=== PATIENT | female | born 1980 | race Caucasian/White ===

== ENCOUNTER 2016-05-13 13:15 | Emergency (ER) | payer OTHER | END 2016-05-13 14:01 | disposition left against medical advice (07) | LOC: ER 13:26 | DX: R05 Cough (principal); Z53.21 Procedure and treatment not carried out due to patient leaving prior to being seen by health care provider ==

== ENCOUNTER 2017-03-18 19:29 | Emergency (ER) | payer SELFPAY ==
[~2017-03-18] VITALS: Ht 172.7 cm; Wt 104.3 kg
[2017-03-18] MEDS ORDERED: SODIUM CHLORIDE 0.9% 1,000 ML IVB ONE (21:09)
[2017-03-18] MEDS ORDERED: IPRATROPIUM BROM 0.5 MG/2.5ML INH SOL NEB ONE (21:15)
[2017-03-18] MEDS ORDERED: ONDANSETRON HCL 4 MG/2 ML VIAL IV ONE (21:15)
[2017-03-18] MEDS ORDERED: HYDROmorphone HCL 2 MG/ML VL IV ONE (21:15)
[2017-03-18] MEDS ORDERED: KETOROLAC TROMETH 30 MG/ML 1ML VIAL IV ONE (21:15)
[2017-03-18] MEDS ORDERED: methylPREDNISolone SOD SUCC 125 MG/2 ML VL IV ONE (21:15)
[2017-03-18] MEDS ORDERED: ALBUTEROL SULF 2.5 MG/0.5ML(0.5%) NEB SOLN NEB ONE (21:15)
[2017-03-18 21:46] LABS: Albumin 4.2 g/dL (3.4-5.0); BUN/Creatinine Ratio 11.2; Calcium 9.4 mg/dL (8.5-10.1); Potassium 3.7 mmol/L (3.5-5.1)
[2017-03-18 21:48] LABS: Bilirubin, Total 0.4 mg/dL (0.2-1.0); Total Protein 8.3 g/dL (6.4-8.2)
[2017-03-19 01:28] LABS: Basophils # (auto) 0 uL; Basophils % (auto) 0.4 % (0.0-2.0); Eosinophils # (auto) 0 uL; Eosinophils % (auto) 0.5 % (0.0-7.0); Hematocrit 39.5 % (36.0-46.0); Lymphocytes # (auto) 2.2 uL; Lymphocytes % (auto) 39.1 % (10.0-50.0); Mean Corpuscular Hemoglobin 27.5 pg (28.0-32.0); Mean Corpuscular Hgb Conc. 32.8 g/dL (32.0-36.0); Mean Corpuscular Volume 83.8 fL (80.0-100.0); Mean Platelet Volume 8.8 fL (6.9-10.8); Monocytes # (auto) 0.7 uL; Monocytes % (auto) 11.7 % (0.0-12.0); Neutrophils # (auto) 2.7 uL; Neutrophils % (auto) 48.3 % (37.0-80.0); Nucleated Red Blood Cells % 0.3 %; Platelet Count (auto) 181 10^3/uL (140-450); Red Cell Distribution Width 14.2 % (11.8-14.3); White Blood Cell 5.6 10^3/uL (4.4-10.8)
[2017-03-19 02:20] LABS: Urine Bilirubin Negative (Negative); Urine Blood 2+ /uL (Negative); Urine Color Yellow (Yellow); Urine Glucose Normal (Normal); Urine Granular Cast FEW /lpf (0); Urine Hyaline Cast MOD /lpf (0 - 2); Urine Ketone 3+ (Negative); Urine Mucus FEW (None Seen); Urine Nitrite Negative (Negative); Urine RBC 20 /hpf (0 - 4); Urine Squamous Epithelial Cell FEW /hpf (<5); Urine Urobilinogen Normal (Negative); Urine pH 5.5 (5.0-8.0)
[2017-03-19] MEDS ORDERED: ALBUTEROL SULF 2.5 MG/0.5ML(0.5%) NEB SOLN NEB ONE (02:30)
[2017-03-19] MEDS ORDERED: NIFEdipine 10 MG CAP PO ONE (03:30)
[2017-03-19 04:04] VITALS: BP 118/69
== END 2017-03-19 04:12 | disposition home or self-care (01) ==
LOC: ER 19:29
DX: J45.901 Unspecified asthma with (acute) exacerbation (principal); J11.1 Influenza due to unidentified influenza virus with other respiratory manifestations; I10 Essential (primary) hypertension
CPT/HCPCS: 36415; 71010; 74176; 80053; 81001; 82150; 83690; 84702; 85025; 93005; 94640; 94761; 96361; 96374; 96375; 99285; J1170; J1885; J2405; J2930

== ENCOUNTER 2017-05-31 20:45 | Emergency (ER) | payer OTHER ==
[~2017-05-31] VITALS: Ht 172.7 cm; Wt 122.5 kg
[2017-05-31 22:21] LABS: Basophils # (auto) 0.1 uL; Basophils % (auto) 0.8 % (0.0-2.0); Eosinophils # (auto) 0.3 uL; Eosinophils % (auto) 2.6 % (0.0-7.0); Hematocrit 37.6 % (36.0-46.0); Hemoglobin 12.4 g/dL (12.2-16.2); Lymphocytes # (auto) 2.7 uL; Lymphocytes % (auto) 25.7 % (10.0-50.0); Mean Corpuscular Hemoglobin 27.4 pg (28.0-32.0); Mean Corpuscular Hgb Conc. 32.9 g/dL (32.0-36.0); Mean Corpuscular Volume 83.4 fL (80.0-100.0); Monocytes # (auto) 0.9 uL; Monocytes % (auto) 8.5 % (0.0-12.0); Neutrophils # (auto) 6.6 uL; Neutrophils % (auto) 62.4 % (37.0-80.0); Platelet Count (auto) 301 10^3/uL (140-450); Red Blood Cells 4.51 10^6/uL (4.0-5.20); Red Cell Distribution Width 13.8 % (11.8-14.3); White Blood Cell 10.6 10^3/uL (4.4-10.8)
[2017-05-31 22:35] LABS: BUN/Creatinine Ratio 16.3; Bilirubin, Total 0.2 mg/dL (0.2-1.0); Magnesium 2.3 mg/dL (1.6-2.6); Potassium 4.1 mmol/L (3.5-5.1); Total Protein 7.4 g/dL (6.4-8.2)
[2017-05-31 22:37] LABS: INR 0.92 (0.9-1.15); Partial Thromboplastin Time 24.8 sec (22.64-33.71)
[2017-06-01 00:06] LABS: Urine Pregnacy Test Negative (Negative)
[2017-06-01 00:19] LABS: Urine Bacteria FEW /hpf (None Seen); Urine Blood Negative /uL (Negative); Urine Mucus FEW (None Seen); Urine Specific Gravity 1.034 (1.001-1.035); Urine WBC 2 /hpf (0 - 5)
[2017-06-01 00:21] LABS: Alcohol, Urine < 3.0 mg/dL (0-5); Amphetamine Screen, Urine NEGATIVE (NEGATIVE); Barbiturate Scree,Urine NEGATIVE (NEGATIVE); Benzodiazephine Screen, Urine NEGATIVE (NEGATIVE); Cannabinoid Screen, Urine POSITIVE (NEGATIVE); Cocaine Screen, Urine NEGATIVE (NEGATIVE); Opiate Scree,Urine NEGATIVE (NEGATIVE); Phencyclidine Screen, Urine NEGATIVE (NEGATIVE)
[2017-06-01 02:39] VITALS: BP 160/98
== END 2017-06-01 02:45 | disposition home or self-care (01) ==
LOC: ER 20:45
DX: R07.89 Other chest pain (principal); K29.00 Acute gastritis without bleeding; J45.909 Unspecified asthma, uncomplicated; I10 Essential (primary) hypertension; R06.02 Shortness of breath; F19.10 Other psychoactive substance abuse, uncomplicated
CPT/HCPCS: 36415; 71045; 80053; 80307; 81001; 81025; 83735; 83880; 84443; 84484; 85025; 85379; 85610; 85730; 93005

== ENCOUNTER 2019-05-16 21:22 | Emergency (ER) | payer MEDICAID, OTHER ==
[~2019-05-16] VITALS: Ht 172.7 cm; Wt 108.9 kg
[2019-05-16 23:04] LABS: Basophils # (auto) 0 uL; Basophils % (auto) 0.6 % (0.0-2.0); Eosinophils # (auto) 0.2 uL; Eosinophils % (auto) 2.3 % (0.0-7.0); Hematocrit 34.3 % (36.0-46.0); Hemoglobin 11.5 g/dL (12.2-16.2); Lymphocytes % (auto) 24.2 % (10.0-50.0); Mean Corpuscular Hemoglobin 27.1 pg (28.0-32.0); Mean Corpuscular Hgb Conc. 33.6 g/dL (32.0-36.0); Mean Corpuscular Volume 80.6 fL (80.0-100.0); Monocytes # (auto) 0.6 uL; Monocytes % (auto) 7.6 % (0.0-12.0); Neutrophils # (auto) 5.3 uL; Neutrophils % (auto) 65.3 % (37.0-80.0); Platelet Count (auto) 260 10^3/uL (140-450); Red Blood Cells 4.26 10^6/uL (4.0-5.20); Red Cell Distribution Width 15.6 % (11.8-14.3); White Blood Cell 8.1 10^3/uL (4.4-10.8)
[2019-05-16 23:20] LABS: INR 1.01 (0.9-1.15); Partial Thromboplastin Time 24.4 sec (23.64-32.05)
[2019-05-16 23:25] LABS: Albumin 3.6 g/dL (3.4-5.0); Anion Gap 8 (5-15); BUN/Creatinine Ratio 18.8; Blood Urea Nitrogen 15 mg/dL (7-18); Calcium 8.9 mg/dL (8.5-10.1); Carbon Dioxide 25 mmol/L (21-32); Chloride 109 mmol/L (98-107); GFR African American 103 mL/min; GFR Non-African American 85 mL/min; Glucose 104 mg/dL (74-106); Magnesium 2.1 mg/dL (1.6-2.6); Potassium 3.7 mmol/L (3.5-5.1); Sodium 142 mmol/L (136-145)
[2019-05-16 23:36] LABS: Alanine Aminotransferase 27 U/L (13-56); Alkaline Phosphatase 52 U/L (45-117); Aspartate Aminotransferase 14 U/L (15-37); Bilirubin, Total 0.1 mg/dL (0.2-1.0); Total Protein 6.9 g/dL (6.4-8.2)
[2019-05-17 04:00] VITALS: BP 140/84
== END 2019-05-17 04:43 | disposition home or self-care (01) ==
LOC: EDBD 21:22 → ER 21:24
DX: R07.89 Other chest pain (principal); F43.0 Acute stress reaction; F41.9 Anxiety disorder, unspecified; J45.909 Unspecified asthma, uncomplicated; I10 Essential (primary) hypertension
CPT/HCPCS: 36415; 80053; 83735; 83880; 84443; 84484; 84702; 85025; 85379; 85610; 85730; 93005

== ENCOUNTER 2021-04-04 11:54 | Emergency (ER) | payer MEDICAID ==
[~2021-04-04] VITALS: Ht 172.7 cm; Wt 108.9 kg
[2021-04-04 12:50] VITALS: BP 148/98
[2021-04-04] MEDS ORDERED: IPRATROPIUM BROM 0.5 MG/2.5ML INH SOL NEB ONE (13:15)
[2021-04-04] MEDS ORDERED: ALBUTEROL SULF 2.5 MG/0.5ML(0.5%) NEB SOLN NEB ONE (13:15)
== END 2021-04-04 13:50 | disposition home or self-care (01) ==
LOC: ER 11:54
DX: J20.9 Acute bronchitis, unspecified (principal); H60.92 Unspecified otitis externa, left ear; I10 Essential (primary) hypertension; J45.909 Unspecified asthma, uncomplicated; F17.210 Nicotine dependence, cigarettes, uncomplicated
CPT/HCPCS: 71046; 94640; 99283; J7644

== ENCOUNTER 2022-01-09 19:32 | Inpatient (IN) | payer MEDICAID ==
[~2022-01-09] VITALS: Ht 175.3 cm; Wt 109.0 kg
[2022-01-09] MEDS ORDERED: diphenhdrAMINE HCL 50 MG/1 ML VL ONE (19:45)
[2022-01-09] MEDS ORDERED: methylPREDNISolone SOD SUCC 125 MG/2 ML VL ONE (19:45)
[2022-01-09] MEDS ORDERED: diphenhdrAMINE HCL 50 MG/1 ML VL IV ONE ×2 (20:00)
[2022-01-09] MEDS ORDERED: methylPREDNISolone SOD SUCC 125 MG/2 ML VL IV ONE (20:00)
[2022-01-09] MEDS ORDERED: SODIUM CHLORIDE 0.9% 1,000 ML IV ONE ×2 (20:00)
[2022-01-09] MEDS ORDERED: FAMOTIDINE (10MG/ML) 2ML VL IV ONE (21:15)
[2022-01-10] MEDS ORDERED: hydrALAZINE HCL 20 MG/ML VL IV PRN (00:15)
[2022-01-10] MEDS ORDERED: ACETAMINOPHEN 325 MG TAB PO PRN (00:15)
[2022-01-10] MEDS ORDERED: ONDANSETRON HCL 4 MG/2 ML VIAL IV PRN (00:15)
[2022-01-10] MEDS ORDERED: NITROGLYCERIN 0.4 MG SL TAB SL PRN (00:15)
[2022-01-10] MEDS ORDERED: TEMAZEPAM 15 MG CAP PO PRN (00:15)
[2022-01-10] MEDS ORDERED: MORPHINE SULFATE INJ 2 MG/ml SYRG IV PRN (00:15)
[2022-01-10] MEDS ORDERED: DOCUSATE SOD 100 MG CAP PO PRN (00:15)
[2022-01-10] MEDS ORDERED: diphenhdrAMINE HCL 50 MG/1 ML VL IV PRN (00:15)
[2022-01-10 01:04] LABS: Basophils # (auto) 0 10 ^3/uL (0-0.2); Basophils % (auto) 0.4 % (0.0-2.0); Eosinophils # (auto) 0 10 ^3/uL (0-0.8); Eosinophils % (auto) 0.3 % (0.0-7.0); Hemoglobin 11.7 g/dL (12.2-16.2); Lymphocytes # (auto) 0.8 10 ^3/uL (0.4-5.4); Lymphocytes % (auto) 9.4 % (10.0-50.0); Mean Corpuscular Hemoglobin 28.1 pg (28.0-32.0); Mean Corpuscular Hgb Conc. 33.5 g/dL (32.0-36.0); Mean Corpuscular Volume 83.9 fL (80.0-100.0); Monocytes # (auto) 0.1 10 ^3/uL (0-1.3); Monocytes % (auto) 0.9 % (0.0-12.0); Neutrophils # (auto) 7.9 10 ^3/uL (1.6-8.6); Red Blood Cells 4.17 10^6/uL (4.0-5.20); White Blood Cell 8.9 10^3/uL (4.4-10.8)
[2022-01-10 01:27] LABS: Albumin 3.7 g/dL (3.4-5.0); BUN/Creatinine Ratio 18.4; Calcium 8.8 mg/dL (8.5-10.1); Potassium 4.3 mmol/L (3.5-5.1)
[2022-01-10 01:29] LABS: Bilirubin, Total 0.2 mg/dL (0.2-1.0)
[2022-01-10 01:51] LABS: Urine Bacteria FEW /hpf (None Seen); Urine Blood Negative /uL (Negative); Urine Specific Gravity 1.023 (1.001-1.035); Urine WBC 1 /hpf (0 - 5)
[2022-01-10 04:42] LABS: Basophils # (auto) 0.1 10 ^3/uL (0-0.2); Basophils % (auto) 0.6 % (0.0-2.0); Eosinophils # (auto) 0 10 ^3/uL (0-0.8); Eosinophils % (auto) 0.1 % (0.0-7.0); Hematocrit 35.8 % (36.0-46.0); Hemoglobin 11.9 g/dL (12.2-16.2); Lymphocytes # (auto) 0.9 10 ^3/uL (0.4-5.4); Lymphocytes % (auto) 10.8 % (10.0-50.0); Mean Corpuscular Hemoglobin 27.5 pg (28.0-32.0); Mean Corpuscular Hgb Conc. 33.3 g/dL (32.0-36.0); Mean Corpuscular Volume 82.6 fL (80.0-100.0); Monocytes # (auto) 0.1 10 ^3/uL (0-1.3); Monocytes % (auto) 0.8 % (0.0-12.0); Neutrophils # (auto) 7.4 10 ^3/uL (1.6-8.6); Neutrophils % (auto) 87.7 % (37.0-80.0); Nucleated Red Blood Cells % 0.1 %; Red Blood Cells 4.33 10^6/uL (4.0-5.20); Red Cell Distribution Width 13.8 % (11.8-14.3); White Blood Cell 8.5 10^3/uL (4.4-10.8)
[2022-01-10 05:09] LABS: Potassium 4.1 mmol/L (3.5-5.1)
[2022-01-10 05:18] LABS: Albumin 3.8 g/dL (3.4-5.0); BUN/Creatinine Ratio 18.1; Bilirubin, Total 0.3 mg/dL (0.2-1.0); Calcium 8.8 mg/dL (8.5-10.1); Total Protein 6.9 g/dL (6.4-8.2)
[2022-01-10] MEDS: HYDROcodone-ACET 5/325MG TAB PO PRN ×2 (05:31→14:07)
[2022-01-10] MEDS: methylPREDNISolone SOD SUCC 40 MG/ML VL IV SCH ×2 (06:20→14:07)
[2022-01-10] MEDS: SODIUM CHLOR 0.9% PF (SALINE LOCK) 10ML VIAL/SYR IV SCH ×2 (06:21→14:07)
[2022-01-10 09:00] VITALS: BP 141/94
[2022-01-10] MEDS ORDERED: FAMOTIDINE (10MG/ML) 2ML VL IV SCH (10:00)
[2022-01-10] MEDS ORDERED: LISI2.5T47 PO (11:43)
[2022-01-10 12:49] VITALS: BP 140/75
[2022-01-10 17:00] VITALS: BP 166/82
[2022-01-10] MEDS ORDERED: HYDR25TA5 GT (17:35)
[2022-01-10] MEDS ORDERED: PRED10TA PO (17:35)
[2022-01-10] MEDS ORDERED: DIPH25CA66 PO (17:35)
[2022-01-10 18:45] VITALS: BP 142/75
== END 2022-01-10 19:10 | disposition home or self-care (01) | DRG 811 ==
LOC: ER 19:32 → OVERFLOW 01-10 00:11 → TELE-EAST 01-10 08:45
PROVIDERS: ADMIT Nurse Practitioner Family; ATTEND Nurse Practitioner Family
DX: T78.3XXA Angioneurotic edema, initial encounter (principal); E66.01 Morbid (severe) obesity due to excess calories; F17.210 Nicotine dependence, cigarettes, uncomplicated; I10 Essential (primary) hypertension; Z20.822 Contact with and (suspected) exposure to COVID-19; M79.89 Other specified soft tissue disorders; J45.909 Unspecified asthma, uncomplicated; T46.4X5A Adverse effect of angiotensin-converting-enzyme inhibitors, initial encounter; Y92.89 Other specified places as the place of occurrence of the external cause; Z98.51 Tubal ligation status; Z79.899 Other long term (current) drug therapy; Z68.35 Body mass index [BMI] 35.0-35.9, adult
CPT/HCPCS: 36415; 80053; 81001; 85025; 96361; 96374; 96375; G0378; J3490

== ENCOUNTER 2022-02-17 13:35 | Emergency (ER) | payer MEDICAID ==
[~2022-02-17] VITALS: Ht 172.7 cm; Wt 110.4 kg
[~2022-02-17 13:35] MED LIST: DIPH25CA66 PO; HYDR25TA5 GT; PRED10TA PO
[2022-02-17 13:42] VITALS: BP 159/109
[2022-02-17] MEDS ORDERED: cloNIDine HCL 0.1 MG TAB PO ONE (14:00)
== END 2022-02-17 15:26 | disposition home or self-care (01) ==
LOC: ER 13:35
DX: I16.0 Hypertensive urgency (principal); F17.210 Nicotine dependence, cigarettes, uncomplicated; Z79.899 Other long term (current) drug therapy
CPT/HCPCS: 93005

== ENCOUNTER 2022-03-26 14:48 | Emergency (ER) | payer MEDICAID ==
[~2022-03-26] VITALS: Ht 177.8 cm; Wt 131.8 kg
[2022-03-26 14:56] VITALS: BP 138/94
== END 2022-03-26 16:11 | disposition left against medical advice (07) ==
LOC: ER 14:48 → EDSEX 14:48 → EDBD 14:48 → ER 16:11
DX: F41.9 Anxiety disorder, unspecified (principal); R05.9 Cough, unspecified; Z53.21 Procedure and treatment not carried out due to patient leaving prior to being seen by health care provider

== ENCOUNTER 2024-08-12 06:15 | Emergency (ER) | payer MEDICAID ==
[~2024-08-12] VITALS: Ht 170.2 cm; Wt 85.5 kg
[~2024-08-12 06:15] MED LIST changes: +DEXA2TAB PO; +DIPH-753 PO; +FAMO40TA7 PO; +PREDPOW63
[2024-08-12 07:13] VITALS: BP 134/105; PULSE 98; RESP 18; TEMP 97.9; O2SAT 98
--- NOTE | 2024-08-12 07:16 | ED.PDOC ---
HPI (NEURO) HPI Comments A 44 YEAR OLD FEMALE PRESENTS TO THE ED WITH COMPLAINT OF HEADACHE. PATIENT STATES SHE HAS BEEN EXPERIENCING A HEADACHE ON THE POSTERIOR SIDE OF HER HEAD FOR THE PAST 1 WEEK WITH WORSENING PAIN TODAY. PATIENT REPORTS SHE HAS ALSO HAD AN OCCASIONAL NUMBNESS/TINGLING SENSATION IN HER FACE THAT STARTED TODAY. PATIENT NOTES SHE HAS BEEN UNDER A LOT OF STRESS RECENTLY DUE TO A PREVIOUS ROTATOR CUFF INJURY CAUSING HER PAIN. PATIENT STATES SHE ALSO HAS A HISTORY OF HYPERTENSION, BUT WAS TAKEN OFF OF HER MEDICATION 1 YEAR AGO DUE TO HER BLOOD PRESSURE BEING WITHIN NORMAL LIMITS. PATIENT DENIES VISION CHANGES, SLURRED SPEECH, ONE-SIDED WEAKNESS, FACIAL DROOP, FEVER, CHILLS, SHORTNESS OF BREATH, CHEST PAIN, ABDOMINAL PAIN, NAUSEA, VOMITING, OR OTHER COMPLAINTS. NO OTHER SYMPTOMS OR MODIFYING FACTORS AT THIS TIME. PATIENT IS ALERT, ORIENTED X 4, AND HAS STEADY GAIT. Chief Complaint: Headache Time Seen by MD: 06:34 Primary Care Provider: BELLO Macias Notes: Nurses Notes, Medications, Allergies Information Source: Patient Mode of Arrival: Ambulatory Severity: Moderate Headache Severity: Moderate Timing: Days Duration: Since onset, Days Prehospital treatment: None Headache Quality: Aching Headache Location: Occipital, Other (POSTERIOR) Onset: At rest Circumstances: Recent stress Symptoms: Numbness, Other (HEADACHE) During: Trauma: None After: Headache Associated Signs and Symptoms: Headache Past Medical History PAST MEDICAL HISTORY: Asthma, HTN Surgical History: Tubal Ligation PARK RANGER History: No Pertinent PARK RANGER History Family History Family History: Reviewed,noncontributory to illness Social History Smoker: Cigarettes Alcohol: Rarely Drugs: Marijuana Lives In: Home Constitutional: reports: others (ANXIOUS ); denies: chills, diaphoresis, fatigue, fever, malaise, sweats, weakness EENTM: denies: blurred vision, double vision, ear bleeding, ear discharge, ear drainage, ear pain, ear ringing, eye pain, eye redness, hearing loss, mouth pain, mouth swelling, nasal discharge, nose bleeding, nose congestion, nose pain, photophobia, tearing, throat pain, throat swelling, voice changes, others Respiratory: denies: cough, hemoptysis, orthopnea, SOB at rest, shortness of breath, SOB with excertion, stridor, wheezing, others Cardiovascular: denies: chest pain, dizzy spells, diaphoresis, Dyspnea on exertion, edema, irregular heart beat, left arm pain, lightheadedness, palpitations, PND, syncope, others Gastrointestinal: denies: abdomen distended, abdominal pain, blood streaked bowels, constipated, diarrhea, dysphagia, difficulty swallowing, hematemesis, melena, nausea, poor appetite, poor fluid intake, rectal bleeding, rectal pain, vomiting, others Genitourinary: denies: abnormal vagina bleeding, burning, dyspareunia, dysuria, flank pain, frequency, hematuria, incontinence, pain, , vagina discharge, urgency, others Neurological: reports: headache, tingling; denies: dizziness, fainting, left sided numbness, left sided weakness, numbness, paresthesia, pre-existing deficit, right sided numbness, right sided weakness, seizure, speech problems, tremors, weakness, others Musculoskeletal: reports: muscle pain; denies: back pain, gout, joint pain, joint swelling, muscle stiffness, neck pain, others Integumetry: denies: bruises, change in color, change in hair/nails, dryness, laceration, lesions, lumps, rash, wounds, others Allergic/Immunocompromised: denies: Difficulty Healing, Frequent Infections, Hives, Itching, others Hematologic/Lymphatic: denies: anemia, blood clots, easy bleeding, easy bruising, swollen glands, others Endocrine: denies: excessive hunger, excessive sweating, excessive thirst, excessive urination, flushing, intolerance to cold, intolerance to heat, unexplained weight gain, unexplained weight loss, others Psychiatric: reports: anxiety; denies: bipolar disorder, depression, hopeless, panic disorder, schizophrenia, sleepless, suicidal, others All Other Systems: Reviewed and Negative Physical Exam General Appearance: Mild Distress, Normal, Other (ANXIOUS ) HEENT: Normal ENT Inspection, PERRL/EOMI, Pharynx Normal, TMs Normal Neck: Full Range of Motion, Non-Tender, Normal, Normal Inspection Respiratory: Chest Non-Tender, Lungs Clear, No Accessory Muscle Use, No Respiratory Distress, Normal Breath Sounds Cardiovascular: No Edema, No JVD, No Murmur, No Gallop, Normal Peripheral Pulses, Regular Rate/Rhythm Breast Exam: Deferred Gastrointestinal: No Organomegaly, Non Tender, No Pulsatile Mass, Normal Bowel Sounds, Soft Genitalia: Deferred Pelvic: Deferred Rectal: Deferred Extremities: No calf tenderness, Normal capillary refill, Normal inspection, Normal range of motion, Non-tender, No pedal edema Musculoskeletal : Apperance: Normal Neurologic: Alert, sample grinder II-XII nml as Tested, Headache, No Motor Deficits, Normal Affect, Normal Mood, No Sensory Deficits Cerebellar Function: Normal Reflexes: Normal Skin: Dry, Normal Color, Warm Peripheral Pulses: 2+ carotid (R), 2+ carotid (L) Lymphatic: No Adenopathy Was a procedure done? Was a procedure done?: No Differential Diagnosis (SZ) Seizure: N/A General Weakness: N/A Headache: Cluster, Migraine, Epidural Hemorrhage, Intracerebral Hemorrhage, Sinusitis, Other (TENSION HEADACHE ) X-Ray, Labs, Meds, VS Vital Signs Date Time Temp Pulse Resp B/P (MAP) Pulse Ox O2 Delivery O2 Flow Rate FiO2 08/12/24 07:13 97.9 98 17 134/105 (115) 99 97.9 08/12/24 07:13 98 18 98 Room Air 08/12/24 06:46 97.8 105 18 139/116 (124) 92 97.8 Current Medications Medications (Trade) Dose Ordered Sig/Sulma Route Start Time Stop Time Status Last Admin Acetaminophen/ Hydrocodone Bitart ([place] 10/325MG Tab) 1 tab ONCE ONCE PO 08/12/24 07:30 08/12/24 07:31 DC 08/12/24 07:38 EXAM: CT Head Without Intravenous Contrast CLINICAL INDICATION: HEADACHE WITH NUMBNESS AND TINGLING SENSATION TECHNIQUE: Axial computed tomography images of the head/brain without intravenous contrast. This CT exam was performed using one or more of the following dose reduction techniques: automated exposure control, adjustment of the mA and/or kV according to patient size, and/or use of iterative reconstruction technique. CONTRAST: RADIATION DOSE: CTDIvol = 60.27 mGy, DLP = 966.01 mGy-cm COMPARISON: None FINDINGS: BRAIN AND EXTRA-AXIAL SPACES: No acute intracranial hemorrhage, midline shift or mass effect. If symptoms persist, further evaluation with MRI is recommended. No significant white matter disease. BONES/JOINTS: Unremarkable. No acute fracture. SOFT TISSUES: Unremarkable. SINUSES: Unremarkable as visualized. No acute sinusitis. MASTOID AIR CELLS: Unremarkable as visualized. No mastoid effusion. OTHER FINDINGS: . IMPRESSION: No acute intracranial hemorrhage, midline shift or mass effect. If symptoms persist, further evaluation with MRI is recommended. ATED BY: SKIP MUHAMMAD MD DICTATED DATE/TIME: 08/12/24735 SIGNED BY: SKIP MUHAMMAD MD SIGNED DATE/TIME: 08/12/24735 CC: X-Ray, Labs, Meds, VS Comment EXTERNAL MEDICAL RECORDS REVIEWED: [NONE] INDEPENDENT HISTORIANS: [NONE] SOCIAL DETERMINANTS OF HEALTH: [NONE] LABS ORDERED: NONE REVIEWED AND INTERPRETED RESULTS: NONE IMAGING ORDERED: CT BRAIN TREATMENTS ORDERED: [place] 10/325MG PO PROCEDURES PERFORMED: NONE CRITICAL CARE TIME: NONE I HAVE DISCUSSED THE PATIENT WITH THE ATTENDING PHYSICIAN DR. ALTMAN AND HE AGREES WITH THE PATIENT'S PLAN OF CARE AND DISPOSITION. BASED ON HISTORY OF PRESENT ILLNESS, AND PHYSICAL EXAM, PATIENT WILL BE DISCHARGED HOME. DISCUSSED PLAN FOR DISCHARGE HOME WITH RX [DYAZIDE AND TYLENOL]. MEDICATION WARNINGS GIVEN. SHARED DECISION MAKING: PATIENT INSTRUCTED TO FOLLOW UP WITH PRIMARY CARE PROVIDER IN 1-2 DAYS FOR RE-EVALUATION OF SYMPTOMS. PATIENT VERBALIZES UNDERSTANDING TO RETURN TO ED FOR NEW OR WORSENING SYMPTOMS OR IF FOLLOW UP WITH PCP CANNOT BE OBTAINED. PATIENT FEELS COMFORTABLE GOING HOME AT THIS TIME. ALL QUESTIONS ADDRESSED AT TIME OF DISCHARGE. Images Reviewed?: Images reviewed and evaluated by me Time of 1ST Reevaluation: 08:08 Reevaluation 1ST: Improved Patient Education/Counseling: Diagnosis, Treatment, Need For Follow Up Family Education/Counseling: Diagnosis, Treatment, Need For Follow Up Medical Screening: No EMC Exist At This Time Departure 1 Departure Time of Disposition: 08:10 Impression: Primary Impression: Tension headache Additional Impression: Hypertension Qualified Codes: I10 - Essential (primary) hypertension Disposition: 01 HOME / SELF CARE / HOMELESS Condition: Stable Additional Instructions: FOLLOW-UP WITH PCP IN 1 TO 2 DAYS. TAKE MEDICATIONS PRESCRIBED. RETURN TO ED FOR ANY NEW OR WORSENING SYMPTOMS. e-Prescriptions Acetaminophen (Tylenol Extra Strength Fo) 500 Mg Tab 1000 MG PO BID, #30 TAB Prov: ESTHER DOYLE 08/12/24 Hydrochlorothiazide W/Triamter (Dyazide 37.5/25MG) 1 Cap Cp 1 CAP PO DAILY, #20 CAP Prov: ESTHER DOYLE 08/12/24 Discharged With: Self Critical Care Note Critical Care Time?: No Stability Stability form required: No I personally scribed for ESTHER DOYLE ([email or web address]) on 08/12/24 at 07:16. Electronically submitted by Cuba Alberts ([email or web address]). I personally scribed for ESTHER DOYLE ([email or web address]) on 08/12/24 at 07:42. Electronically submitted by Cuba Alberts ([email or web address]). ESTHER DOYLE Aug 12, 2024 07:16
[2024-08-12] MEDS: HYDROcodone-ACET 10/325MG TAB PO ONE (07:38)
--- NOTE | 2024-08-12 07:39 | DVH ---
EXAM: CT Head Without Intravenous Contrast CLINICAL INDICATION: HEADACHE WITH NUMBNESS AND TINGLING SENSATION TECHNIQUE: Axial computed tomography images of the head/brain without intravenous contrast. This CT exam was performed using one or more of the following dose reduction techniques: automated exposure control, adjustment of the mA and/or kV according to patient size, and/or use of iterative reconstru ction technique. CONTRAST: RADIATION DOSE: CTDIvol = 60.27 mGy, DLP = 966.01 mGy-cm COMPARISON: None FINDINGS: BRAIN AND EXTRA-AXIAL SPACES: No acute intracranial hemorrhage, midline shift or mass effect. If sy mptoms persist, further evaluation with MRI is recommended. No significant white matter disease. BONES/JOINTS: Unremarkable. No acute fracture. SOFT TISSUES: Unremarkable. SINUSES: Unremarkable as visualized. No acute sinusitis. MASTOID AIR CELLS: Unremarkable as visualized. No mastoid effusion. OTHER FINDINGS: . IMPRESSION: No acute intracranial hemorrhage, midline shift or mass effect. If symptoms persist, further evaluat ion with MRI is recommended.
[2024-08-12] MEDS ORDERED: TRIA37.587 PO (08:07)
[2024-08-12] MEDS ORDERED: ACET-1304 PO (08:07)
== END 2024-08-12 08:16 | disposition home or self-care (01) ==
LOC: ER 06:15
DX: G44.209 Tension-type headache, unspecified, not intractable (principal); I10 Essential (primary) hypertension; F17.210 Nicotine dependence, cigarettes, uncomplicated; J45.909 Unspecified asthma, uncomplicated; Z98.51 Tubal ligation status; F12.90 Cannabis use, unspecified, uncomplicated
CPT/HCPCS: 70450